=== PATIENT | male | born 1970 | race African-American/Black ===

== ENCOUNTER 2023-04-19 13:30 | Inpatient (IN) | payer MEDICAID, OTHER ==
[~2023-04-19] VITALS: Ht 177.8 cm; Wt 66.0 kg
[2023-04-19 14:15] VITALS: PULSE 74; RESP 34; O2SAT 99
[2023-04-19 15:10] LABS: Base Excess -2.4 mmol/L (-2.0-2.0)
[2023-04-19 15:22] LABS: Basophils # (auto) 0 10 ^3/uL (0-0.2); Basophils % (auto) 0.3 % (0.0-2.0); Eosinophils # (auto) 0 10 ^3/uL (0-0.8); Eosinophils % (auto) 0.1 % (0.0-7.0); Hematocrit 27.3 % (41.0-53.0); Hemoglobin 9.3 g/dL (13.5-17.5); Lymphocytes # (auto) 0.6 10 ^3/uL (0.4-5.4); Lymphocytes % (auto) 15.8 % (10.0-50.0); Mean Corpuscular Hemoglobin 27.5 pg (28.0-32.0); Mean Corpuscular Hgb Conc. 34.1 g/dL (32.0-36.0); Mean Corpuscular Volume 80.6 fL (80.0-100.0); Monocytes # (auto) 0.4 10 ^3/uL (0-1.3); Monocytes % (auto) 8.9 % (0.0-12.0); Neutrophils % (auto) 74.9 % (37.0-80.0); Nucleated Red Blood Cells % 0.1 %; Red Blood Cells 3.38 10^6/uL (4.5-5.90); Red Cell Distribution Width 14.8 % (11.8-14.3)
[2023-04-19 15:43] LABS: Potassium 3.7 mmol/L (3.5-5.1)
[2023-04-19 15:54] LABS: Albumin 2.2 g/dL (3.4-5.0); BUN/Creatinine Ratio 23.8 (10.0-20.0); Bilirubin, Total 0.3 mg/dL (0.2-1.0); Calcium 8.8 mg/dL (8.5-10.1); Magnesium 2.4 mg/dL (1.6-2.6); Total Protein 6.4 g/dL (6.4-8.2)
[2023-04-19] MEDS ORDERED: FUROSEMIDE 40 MG/4 ML VIAL IV ONE (16:30)
[2023-04-19] MEDS ORDERED: cefTRIAXone 1GM/50ML D5W 50 ML IV ONE (16:30)
[2023-04-19] MEDS ORDERED: AZITHROMYCIN 500MG/ 250ML 250 ML IV ONE (16:30)
[2023-04-19] MEDS ORDERED: ENOXAPARIN SOD 40 MG/0.4 ML SYRINGE SC SCH (17:15)
[2023-04-19] MEDS ORDERED: DexAMETHasone SOD PHOS 10MG/1ML VIAL INJ IV ONE (17:30)
[2023-04-19] MEDS ORDERED: CEFEPIME 2GM/50ML NS 50 ML IV ONE (17:45)
[2023-04-19] MEDS ORDERED: VANCOMYCIN PER PHARMACY 0 MG IV SCH (17:45)
[2023-04-19] MEDS ORDERED: BACTRIM 5MG/KG Q8HR PER RX 0 ML IV SCH (18:30)
[2023-04-19] MEDS ORDERED: VANCOMYCIN 1GM/250ML 250 ML IV ONE (18:45)
[2023-04-19 20:18] VITALS: PULSE 81; RESP 20; O2SAT 98
[2023-04-19] MEDS ORDERED: SULFAMETHOX W/TRIMETH(800/160MG) DS TAB PO SCH (22:00)
[2023-04-19] MEDS: SULFAMETH-TRIMETH 80/16MG-ML 20 ML in D5W 5% 500 ML IV SCH (22:19)
[2023-04-19] MEDS: ATORVASTATIN 20 MG TAB PO SCH (22:27)
[2023-04-19] MEDS: ONDANSETRON HCL 4 MG/2 ML VIAL IV PRN (23:59)
[2023-04-20] MEDS ORDERED: MORPHINE SULFATE 4 MG/ML SYR/VIAL IV PRN
[2023-04-20] MEDS: CEFEPIME 2GM/50ML NS 50 ML IV SCH ×3 (02:07→17:50)
[2023-04-20 04:50] LABS: Basophils # (auto) 0 10 ^3/uL (0-0.2); Basophils % (auto) 0.1 % (0.0-2.0); Eosinophils # (auto) 0 10 ^3/uL (0-0.8); Hemoglobin 9.9 g/dL (13.5-17.5); Lymphocytes # (auto) 0.4 10 ^3/uL (0.4-5.4); Lymphocytes % (auto) 12.6 % (10.0-50.0); Mean Corpuscular Hemoglobin 27.4 pg (28.0-32.0); Mean Corpuscular Hgb Conc. 34.2 g/dL (32.0-36.0); Monocytes # (auto) 0.1 10 ^3/uL (0-1.3); Monocytes % (auto) 3.6 % (0.0-12.0); Neutrophils # (auto) 2.4 10 ^3/uL (1.6-8.6); Neutrophils % (auto) 83.7 % (37.0-80.0); Nucleated Red Blood Cells % 0.1 %; Red Blood Cells 3.62 10^6/uL (4.5-5.90); Red Cell Distribution Width 14.9 % (11.8-14.3); White Blood Cell 2.9 10^3/uL (4.4-10.8)
[2023-04-20 05:05] LABS: INR 1.06 (0.9-1.15); Prothrombin Time 11.1 sec (9.3-11.8)
[2023-04-20 05:13] LABS: Albumin 2.2 g/dL (3.4-5.0); Potassium 4.5 mmol/L (3.5-5.1)
[2023-04-20 05:15] LABS: BUN/Creatinine Ratio 22.2 (10.0-20.0)
[2023-04-20 05:17] LABS: Bilirubin, Total 0.2 mg/dL (0.2-1.0); Total Protein 7.4 g/dL (6.4-8.2)
[2023-04-20] MEDS: VANCOMYCIN 1GM/250ML 250 ML IV SCH ×2 (05:28→16:15)
[2023-04-20] MEDS: FUROSEMIDE 20 MG/2 ML VIAL IV SCH ×2 (06:30→17:51)
[2023-04-20] MEDS: SULFAMETH-TRIMETH 80/16MG-ML 20 ML in D5W 5% 500 ML IV SCH ×3 (06:38→23:15)
[2023-04-20 07:41] VITALS: PULSE 64; RESP 16; O2SAT 98
[2023-04-20 08:34] LABS: COVID19 ANTIGEN SOFIA FIA NEGATIVE (NEGATIVE)
[2023-04-20] MEDS ORDERED: cefTRIAXone 1GM/50ML D5W 50 ML IV SCH (09:00)
[2023-04-20] MEDS: DexAMETHasone SOD PHOS 10MG/1ML VIAL INJ IV SCH (09:55)
[2023-04-20] MEDS ORDERED: AZITHROMYCIN 500MG/ 250ML 250 ML IV SCH (10:00)
[2023-04-20 11:15] LABS: Cholesterol 164 mg/dL (< 200)
[2023-04-20 11:18] LABS: HDL Cholesterol 36 mg/dL (40-59); LDL Cholesterol 108 mg/dL (< 100); Triglycerides 121 mg/dL (< 150)
[2023-04-20 11:32] LABS: Alcohol, Urine < 3.0 mg/dL (0-10); Amphetamine Screen, Urine NEGATIVE (NEGATIVE); Barbiturate Scree,Urine NEGATIVE (NEGATIVE); Benzodiazephine Screen, Urine NEGATIVE (NEGATIVE); Cannabinoid Screen, Urine NEGATIVE (NEGATIVE); Cocaine Screen, Urine NEGATIVE (NEGATIVE); Opiate Scree,Urine NEGATIVE (NEGATIVE); Phencyclidine Screen, Urine NEGATIVE (NEGATIVE)
[2023-04-20 11:38] LABS: Urine Bacteria NONE SEEN /hpf (None Seen); Urine Blood Negative /uL (Negative); Urine Clarity Clear (Clear); Urine Color Colorless (Yellow); Urine Protein, UAD Negative (Negative); Urine Specific Gravity 1.012 (1.001-1.035); Urine Urobilinogen Normal (Negative); Urine WBC 2 /hpf (0 - 3); Urine pH 6.5 (5.0-8.0)
[2023-04-20 19:30] VITALS: PULSE 74; RESP 18; O2SAT 97
[2023-04-20] MEDS: ATORVASTATIN 20 MG TAB PO SCH (22:08)
[2023-04-20] MEDS: SACUBITRIL-VALSARTAN 24mg/26mg TAB PO SCH (22:09)
[2023-04-20 22:38] VITALS: PULSE 68; RESP 20; O2SAT 97
[2023-04-20 22:45] VITALS: BP 89/51; PULSE 68; RESP 20; TEMP 97.3; O2SAT 97
[2023-04-21] VITALS (7 sets, daily range): BP systolic 87–101; BP diastolic 40–63; PULSE 60–78; RESP 18–20; TEMP 97.2–97.9; O2SAT 92–99
[2023-04-21] MEDS: CEFEPIME 2GM/50ML NS 50 ML IV SCH ×3 (01:46→17:39)
[2023-04-21] MEDS: VANCOMYCIN 1GM/250ML 250 ML IV SCH ×3 (01:48→22:16)
[2023-04-21] MEDS ORDERED: SODIUM CHLORIDE 0.9% 500 ML IV ONE (04:15)
[2023-04-21] MEDS: FUROSEMIDE 20 MG/2 ML VIAL IV SCH ×2 (06:00→17:42)
[2023-04-21] MEDS: EMPAGLIFLOZIN 10 MG TAB PO SCH (06:28)
[2023-04-21 07:06] LABS: Basos 0 % (Not Estab.); Eos 0 % (Not Estab.); Hematocrit 32.4 % (37.5-51.0); Hematology Comments: Note: (.); Hemoglobin 9.5 g/dL (13.0-17.7); Immature Granulocytes 0 % (Not Estab.); Lymphs 18 % (Not Estab.); Lymphs (Absolute) 0.5 x10E3/uL (0.7-3.1); MCHC 29.3 g/dL (31.5-35.7); MCV 89 fL (79-97); Monocytes 8 % (Not Estab.); Monocytes (Absolute) 0.2 x10E3/uL (0.1-0.9); Neutrophils 74 % (Not Estab.); Platelets 373 x10E3/uL (150-450); RBC 3.65 x10E6/uL (4.14-5.80); WBC 2.7 x10E3/uL (3.4-10.8)
[2023-04-21] MEDS ORDERED: FUROSEMIDE 20 MG/2 ML VIAL IV ONE (08:00)
[2023-04-21] MEDS: SULFAMETH-TRIMETH 80/16MG-ML 20 ML in D5W 5% 500 ML IV SCH ×2 (09:37→17:39)
[2023-04-21 10:07] LABS: % CD 4 Pos Lymph 31.6 % (30.8-58.5); Absolute CD 4 Helper 158 /uL (359-1519)
[2023-04-21] MEDS: SACUBITRIL-VALSARTAN 24mg/26mg TAB PO SCH (11:17)
[2023-04-21] MEDS: DexAMETHasone SOD PHOS 10MG/1ML VIAL INJ IV SCH (11:17)
[2023-04-21] MEDS: ATORVASTATIN 20 MG TAB PO SCH (22:16)
[2023-04-22] VITALS (8 sets, daily range): BP systolic 90–98; BP diastolic 52–66; PULSE 59–78; RESP 16–19; TEMP 97.4–98.4; O2SAT 90–96
[2023-04-22] MEDS: SULFAMETH-TRIMETH 80/16MG-ML 20 ML in D5W 5% 500 ML IV SCH ×3 (00:21→17:41)
[2023-04-22] MEDS: CEFEPIME 2GM/50ML NS 50 ML IV SCH ×3 (01:49→17:41)
[2023-04-22 05:01] LABS: Potassium 4.4 mmol/L (3.5-5.1)
[2023-04-22 05:09] LABS: BUN/Creatinine Ratio 21.8 (10.0-20.0); Calcium 9.3 mg/dL (8.5-10.1)
[2023-04-22] MEDS: FUROSEMIDE 20 MG/2 ML VIAL IV SCH ×2 (06:00→17:42)
[2023-04-22] MEDS: EMPAGLIFLOZIN 10 MG TAB PO SCH (06:19)
[2023-04-22] MEDS: VANCOMYCIN 1GM/250ML 250 ML IV SCH (08:51)
[2023-04-22] MEDS: SACUBITRIL-VALSARTAN 24mg/26mg TAB PO SCH ×2 (10:00→21:48)
[2023-04-22] MEDS: DexAMETHasone SOD PHOS 10MG/1ML VIAL INJ IV SCH (12:16)
[2023-04-22] MEDS ORDERED: VANCOMYCIN 1GM/250ML 250 ML IV SCH (21:00)
[2023-04-22] MEDS: ATORVASTATIN 20 MG TAB PO SCH (21:48)
[2023-04-23] VITALS (11 sets, daily range): BP systolic 87–110; BP diastolic 50–66; PULSE 20–96; RESP 16–78; TEMP 97.8–98.9; O2SAT 97–100
[2023-04-23] MEDS: SULFAMETH-TRIMETH 80/16MG-ML 20 ML in D5W 5% 500 ML IV SCH ×3 (01:19→18:41)
[2023-04-23] MEDS: CEFEPIME 2GM/50ML NS 50 ML IV SCH ×3 (01:19→18:00)
[2023-04-23] MEDS: FUROSEMIDE 20 MG/2 ML VIAL IV SCH ×2 (06:00→18:00)
[2023-04-23] MEDS: EMPAGLIFLOZIN 10 MG TAB PO SCH (06:55)
[2023-04-23] MEDS ORDERED: EPINEPHrine HCL 1 MG/1 ML AMP ONE (08:15)
[2023-04-23] MEDS ORDERED: LIDOCAINE 2%HCL (LOCAL ANESTH.) INJ 20ML MDV ONE (08:15)
[2023-04-23] MEDS ORDERED: LIDOCAINE 2% JELLY 11ml (GLYDO) ONE (08:15)
[2023-04-23] MEDS ORDERED: GLYCOPYRROLATE 0.2 MG/ML 1ML VIAL ONE (08:15)
[2023-04-23] MEDS ORDERED: LIDOCAINE HCL 2 % INJ 2ML MPF NEB ONE (09:30)
[2023-04-23] MEDS: SACUBITRIL-VALSARTAN 24mg/26mg TAB PO SCH ×2 (10:00→22:00)
[2023-04-23] MEDS: DexAMETHasone SOD PHOS 10MG/1ML VIAL INJ IV SCH (10:00)
[2023-04-23] MEDS: fentaNYL CITRATE 100 MCG/2 ML VL ONE ×3 (10:24→10:28)
[2023-04-23] MEDS: MIDAZOLAM HCL 2MG/2ML 2ml VIAL (1mg/ml) ONE ×3 (10:24→10:28)
[2023-04-23] MEDS: diphenhdrAMINE HCL 50 MG/1 ML VL ONE ×2 (10:25→10:28)
[2023-04-23 14:44] LABS: Basophils # (auto) 0 10 ^3/uL (0-0.2); Basophils % (auto) 0.2 % (0.0-2.0); Eosinophils # (auto) 0 10 ^3/uL (0-0.8); Eosinophils % (auto) 0.1 % (0.0-7.0); Lymphocytes # (auto) 0.6 10 ^3/uL (0.4-5.4); Monocytes # (auto) 0.5 10 ^3/uL (0-1.3); Red Cell Distribution Width 14.8 % (11.8-14.3)
[2023-04-23 14:45] LABS: Hematocrit 33.4 % (41.0-53.0); Hemoglobin 11.3 g/dL (13.5-17.5); Lymphocytes % (auto) 7.8 % (10.0-50.0); Mean Corpuscular Hemoglobin 27.5 pg (28.0-32.0); Monocytes % (auto) 7.4 % (0.0-12.0); Neutrophils # (auto) 6.1 10 ^3/uL (1.6-8.6); Neutrophils % (auto) 84.5 % (37.0-80.0); Red Blood Cells 4.12 10^6/uL (4.5-5.90); White Blood Cell 7.3 10^3/uL (4.4-10.8)
[2023-04-23 15:03] LABS: Albumin 2.6 g/dL (3.4-5.0); Calcium 9.4 mg/dL (8.5-10.1); Potassium 4.6 mmol/L (3.5-5.1)
[2023-04-23 15:18] LABS: Bilirubin, Total 0.2 mg/dL (0.2-1.0)
[2023-04-23 15:42] LABS: Total Protein 7.4 g/dL (6.4-8.2)
[2023-04-23] MEDS: VANCOMYCIN 1GM/250ML 250 ML IV SCH (21:12)
[2023-04-23] MEDS: ATORVASTATIN 20 MG TAB PO SCH (22:42)
[2023-04-24] VITALS (8 sets, daily range): BP systolic 89–103; BP diastolic 41–57; PULSE 67–89; RESP 18–21; TEMP 97.8–100; O2SAT 90–100
[2023-04-24] MEDS: SULFAMETH-TRIMETH 80/16MG-ML 20 ML in D5W 5% 500 ML IV SCH ×3 (00:39→17:01)
[2023-04-24] MEDS: CEFEPIME 2GM/50ML NS 50 ML IV SCH ×3 (02:30→20:23)
[2023-04-24] MEDS: FUROSEMIDE 20 MG/2 ML VIAL IV SCH ×2 (05:56→18:00)
[2023-04-24] MEDS: EMPAGLIFLOZIN 10 MG TAB PO SCH (06:32)
[2023-04-24] MEDS: DexAMETHasone SOD PHOS 10MG/1ML VIAL INJ IV SCH (09:43)
[2023-04-24] MEDS: SACUBITRIL-VALSARTAN 24mg/26mg TAB PO SCH ×2 (09:44→21:12)
[2023-04-24] MEDS: VANCOMYCIN 1GM/250ML 250 ML IV SCH (12:00)
[2023-04-24] MEDS: ONDANSETRON HCL 4 MG/2 ML VIAL IV PRN (20:22)
[2023-04-24] MEDS: ATORVASTATIN 20 MG TAB PO SCH (22:00)
[2023-04-25] VITALS (9 sets, daily range): BP systolic 74–121; BP diastolic 42–70; PULSE 57–95; RESP 17–20; TEMP 36.7; O2SAT 94–100
[2023-04-25] MEDS: SULFAMETH-TRIMETH 80/16MG-ML 20 ML in D5W 5% 500 ML IV SCH ×3 (01:54→17:03)
[2023-04-25] MEDS: VANCOMYCIN 1GM/250ML 250 ML IV SCH (04:18)
[2023-04-25] MEDS: FUROSEMIDE 20 MG/2 ML VIAL IV SCH (05:06)
[2023-04-25] MEDS: CEFEPIME 2GM/50ML NS 50 ML IV SCH ×4 (06:03→18:20)
[2023-04-25] MEDS: EMPAGLIFLOZIN 10 MG TAB PO SCH (06:06)
[2023-04-25] MEDS: DexAMETHasone SOD PHOS 10MG/1ML VIAL INJ IV SCH (10:00)
[2023-04-25] MEDS ORDERED: LACTULOSE 20Gm/30ML SOLN PO PRN (10:45)
[2023-04-25] MEDS ORDERED: SODIUM CHLORIDE 0.9% 500 ML IV ONE (10:45)
[2023-04-25] MEDS ORDERED: BACDST PO (11:38)
[2023-04-25] MEDS ORDERED: PRED20TA2 PO (11:42)
[2023-04-25] MEDS ORDERED: SENN-58 PO (11:42)
[2023-04-25] MEDS ORDERED: DOCU-94 PO (11:42)
[2023-04-25] MEDS ORDERED: MID10T PO (13:25)
[2023-04-25] MEDS ORDERED: MIDODRINE HCL 10 MG TAB PO ONE (13:30)
[2023-04-25 14:06] LABS: Aspergillus flavus Negative (Neg:<1:1); Aspergillus fumigatus Negative (Neg:<1:1); Aspergillus niger Negative (Neg:<1:1); Blastomyces Antibody DID Negative (Neg:<1:1)
[2023-04-25] MEDS ORDERED: MIDODRINE HCL 10 MG TAB PO SCH (18:00)
[2023-04-25] MEDS ORDERED: VANCOMYCIN 1GM/250ML 250 ML IV SCH (21:00)
[2023-04-25] MEDS: ATORVASTATIN 20 MG TAB PO SCH (23:38)
== END 2023-04-26 00:07 | disposition home or self-care (01) | DRG 137 ==
LOC: EDBD 13:30 → ER 13:30 → TELE 17:21 → TELE-WESTW 04-20 22:25
PROVIDERS: ADMIT Internal Medicine; ATTEND Internal Medicine
PROC: 0B9B8ZZ Drainage of Left Lower Lobe Bronchus, Via Natural or Artificial Opening Endoscopic (ICD-10-PCS; 2023-04-23)
PROC: 0B958ZZ Drainage of Right Middle Lobe Bronchus, Via Natural or Artificial Opening Endoscopic (ICD-10-PCS; principal; 2023-04-23 09:59)
DX: B59 Pneumocystosis (principal); J96.01 Acute respiratory failure with hypoxia; I50.33 Acute on chronic diastolic (congestive) heart failure; I42.7 Cardiomyopathy due to drug and external agent; R62.7 Adult failure to thrive; K59.00 Constipation, unspecified; Z20.822 Contact with and (suspected) exposure to COVID-19; I35.0 Nonrheumatic aortic (valve) stenosis; D72.819 Decreased white blood cell count, unspecified; Z79.899 Other long term (current) drug therapy; Z87.891 Personal history of nicotine dependence; Z68.20 Body mass index [BMI] 20.0-20.9, adult; Z21 Asymptomatic human immunodeficiency virus [HIV] infection status
CPT/HCPCS: 31622; 36415; 36600; 70450; 70551; 71045; 80048; 80053; 80061; 80202; 80307; 81001; 82805; 82962; 83036; 83605; 83735; 83880; 84443; 84484; 85025; 85610; 86360; 86606; 86612; 86635; 86698; 87040; 87070; 87205; 87426; 93005; 93306; 97110; 97116; 97163; 97530; 99291; G0378; J0171; J0692; J1100; J2250; J2405; J3490

== ENCOUNTER 2023-05-31 22:03 | Inpatient (IN) | payer MEDICAID ==
[~2023-05-31] VITALS: Ht 167.6 cm; Wt 68.6 kg
[~2023-05-31 22:03] MED LIST: BACDST PO; DOCU-94 PO; MID10T PO; PRED20TA2 PO; SENN-58 PO
[2023-05-31 22:43] LABS: Basophils # (auto) 0 10 ^3/uL (0-0.2); Basophils % (auto) 0.1 % (0.0-2.0); Eosinophils # (auto) 0 10 ^3/uL (0-0.8); Hemoglobin 9.1 g/dL (13.5-17.5); Monocytes # (auto) 0.8 10 ^3/uL (0-1.3)
[2023-05-31 22:44] LABS: Lymphocytes # (auto) 0.9 10 ^3/uL (0.4-5.4); Lymphocytes % (auto) 11.7 % (10.0-50.0); Mean Corpuscular Hemoglobin 26.3 pg (28.0-32.0); Mean Corpuscular Hgb Conc. 32.6 g/dL (32.0-36.0); Mean Corpuscular Volume 80.7 fL (80.0-100.0); Monocytes % (auto) 10.9 % (0.0-12.0); Neutrophils # (auto) 5.8 10 ^3/uL (1.6-8.6); Neutrophils % (auto) 77.3 % (37.0-80.0); Nucleated Red Blood Cells % 0.1 %; Red Blood Cells 3.47 10^6/uL (4.5-5.90); Red Cell Distribution Width 15.7 % (11.8-14.3); White Blood Cell 7.5 10^3/uL (4.4-10.8)
[2023-05-31] MEDS ORDERED: LIDOCAINE 1% HCL (LOCAL ANESTH.) INJ 20ML MDV IJ ONE (23:00)
[2023-05-31 23:02] LABS: Alanine Aminotransferase 17 U/L (7-40); Albumin 3.7 g/dL (3.2-4.8); Alkaline Phosphatase 78 U/L (46-116); Anion Gap 7 (5-15); Aspartate Aminotransferase 20 U/L (13-40); BUN/Creatinine Ratio 9.7 (10.0-20.0); Blood Urea Nitrogen 10 mg/dL (9-23); Calcium 8.8 mg/dL (8.7-10.4); Carbon Dioxide 23 mmol/L (20-30); Chloride 98 mmol/L (98-107); Glucose 103 mg/dL (74-106); Potassium 4.5 mmol/L (3.5-5.1); Sodium 128 mmol/L (136-145)
[2023-05-31] MEDS ORDERED: LIDOCAINE 1% HCL (LOCAL ANESTH.) INJ 20ML MDV ONE (23:02)
[2023-05-31 23:03] LABS: Bilirubin, Total 0.3 mg/dL (0.2-1.0); Total Protein 7.1 g/dL (5.7-8.2)
[2023-05-31] MEDS ORDERED: SODIUM CHLORIDE 0.9% 2,000 ML IV ONE (23:45)
[2023-05-31 23:50] VITALS: PULSE 86; RESP 20; O2SAT 97
[2023-05-31 23:56] LABS: Protein, CSF 41.1 mg/dL (15-45)
[2023-06-01] MEDS ORDERED: SULFAMETH-TRIMETH 80/16MG-ML 15 ML in D5W 5% 500 ML IV ONE ×2
[2023-06-01] MEDS ORDERED: PENICILLIN G BENZ 600000 UNIT/ML 1ML SYRG IM ONE
[2023-06-01] MEDS ORDERED: DOXYCYCLINE 100MG/250ML 250 ML IV ONE
[2023-06-01 00:30] LABS: CSF White Blood Cells 0.6 CUMM (0-5)
[2023-06-01] MEDS ORDERED: ACETAMINOPHEN 325 MG TAB PO ONE (00:45)
[2023-06-01] MEDS ORDERED: SODIUM CHLORIDE 0.9% 1,000 ML IV ONE (01:15)
[2023-06-01] MEDS ORDERED: ONDANSETRON HCL 4 MG/2 ML VIAL IV PRN (01:15)
[2023-06-01 01:55] LABS: Chloride 102 mmol/L (98-107); Potassium 4.4 mmol/L (3.5-5.1); Sodium 130 mmol/L (136-145)
[2023-06-01 01:56] LABS: Anion Gap 7 (5-15); Calcium 7.9 mg/dL (8.7-10.4); Carbon Dioxide 21 mmol/L (20-30)
[2023-06-01 02:01] LABS: BUN/Creatinine Ratio 11.6 (10.0-20.0); Blood Urea Nitrogen 10 mg/dL (9-23); Glucose 103 mg/dL (74-106)
[2023-06-01 02:25] LABS: Urine Bacteria NONE SEEN /hpf (None Seen); Urine Blood Negative /uL (Negative); Urine Clarity Clear (Clear); Urine Color Colorless (Yellow); Urine Protein, UAD Negative (Negative); Urine Specific Gravity 1.002 (1.001-1.035); Urine Urobilinogen Normal (Negative); Urine WBC 1 /hpf (0 - 3)
[2023-06-01 02:32] LABS: Amphetamine Screen, Urine Neg (NEGATIVE); Barbiturate Scree,Urine Neg (NEGATIVE); Benzodiazephine Screen, Urine Neg (NEGATIVE); Cannabinoid Screen, Urine Neg (NEGATIVE); Cocaine Screen, Urine Neg (NEGATIVE); Opiate Scree,Urine Neg (NEGATIVE); Phencyclidine Screen, Urine Neg (NEGATIVE)
[2023-06-01] MEDS ORDERED: SULFAMETH-TRIMETH 800-160mg/10ml (80-16MG/ML) 10 ML VIAL IV ONE (03:34)
[2023-06-01 06:17] LABS: Anion Gap 6 (5-15); Carbon Dioxide 22 mmol/L (20-30); Chloride 106 mmol/L (98-107); Potassium 4.5 mmol/L (3.5-5.1); Sodium 134 mmol/L (136-145)
[2023-06-01 06:18] LABS: Calcium 8.5 mg/dL (8.5-10.1)
[2023-06-01 06:23] LABS: BUN/Creatinine Ratio 12.7 (10.0-20.0); Blood Urea Nitrogen 10 mg/dL (9-23); Glucose 116 mg/dL (74-106)
[2023-06-01 07:44] LABS: COVID19 ANTIGEN SOFIA FIA NEGATIVE (NEGATIVE)
[2023-06-01 07:55] VITALS: PULSE 62; RESP 17; O2SAT 97
[2023-06-01] MEDS: DOXYCYCLINE 100MG/250ML 250 ML IV SCH ×2 (09:46→21:19)
[2023-06-01 14:06] VITALS: PULSE 86; RESP 19; O2SAT 97
[2023-06-01 15:09] VITALS: BP 116/73; PULSE 88; RESP 16; TEMP 97.4; O2SAT 97
[2023-06-01] MEDS ORDERED: DOXY100C4 PO (17:34)
[2023-06-01] MEDS ORDERED: BICT1TAB PO (17:34)
[2023-06-01 17:45] VITALS: BP 114/65; PULSE 77; RESP 20; TEMP 97.5; O2SAT 94
[2023-06-01] MEDS: ACETAMINOPHEN 325 MG TAB PO PRN (19:04)
[2023-06-01 20:00] VITALS: PULSE 91; O2SAT 100
[2023-06-01 22:00] VITALS: BP 91/50; PULSE 104; RESP 17; TEMP 98.8; O2SAT 100
[2023-06-02] VITALS (8 sets, daily range): BP systolic 90–109; BP diastolic 60–71; PULSE 71–96; RESP 16–20; TEMP 96.9–101.3; O2SAT 93–100
[2023-06-02] MEDS: ACETAMINOPHEN 325 MG TAB PO PRN ×2 (04:48→16:33)
[2023-06-02] MEDS: DOXYCYCLINE 100MG/250ML 250 ML IV SCH ×2 (11:54→21:04)
[2023-06-02 22:06] LABS: HSV-1 DNA CSF Negative (Negative); HSV-2 DNA Negative (Negative)
[2023-06-03] VITALS (9 sets, daily range): BP systolic 90–97; BP diastolic 49–58; PULSE 64–133; RESP 16–22; TEMP 98.2–99.4; O2SAT 94–100
[2023-06-03] MEDS: Ensure HIGH Protein Chocolate 8oz Bottle PO SCH ×3 (08:00→19:22)
[2023-06-03] MEDS ORDERED: ALBUTEROL SULF 2.5 MG/0.5ML(0.5%) NEB SOLN NEB PRN (10:30)
[2023-06-03] MEDS: DOXYCYCLINE 100MG/250ML 250 ML IV SCH (11:39)
[2023-06-03] MEDS: DOXYCYCLINE 100 MG TAB/CAP PO SCH (21:00)
[2023-06-04] VITALS (11 sets, daily range): BP systolic 84–112; BP diastolic 45–65; PULSE 65–97; RESP 16–20; TEMP 97.9–99.8; O2SAT 96–100
[2023-06-04] MEDS ORDERED: SODIUM CHLORIDE 0.9% 500 ML IV ONE (05:30)
[2023-06-04] MEDS: MIDODRINE HCL 10 MG TAB PO SCH ×3 (05:30→18:15)
[2023-06-04] MEDS: Ensure HIGH Protein Chocolate 8oz Bottle PO SCH ×3 (08:00→18:00)
[2023-06-04] MEDS: DOXYCYCLINE 100 MG TAB/CAP PO SCH ×2 (12:10→20:57)
[2023-06-04] MEDS: ACETAMINOPHEN 325 MG TAB PO PRN (23:07)
[2023-06-05] VITALS (8 sets, daily range): BP systolic 89–112; BP diastolic 48–62; PULSE 69–93; RESP 17–20; TEMP 97.8–98.9; O2SAT 96–99
[2023-06-05] MEDS: MIDODRINE HCL 10 MG TAB PO SCH ×3 (05:27→17:46)
[2023-06-05] MEDS: Ensure HIGH Protein Chocolate 8oz Bottle PO SCH ×3 (08:00→18:00)
[2023-06-05] MEDS: DOXYCYCLINE 100 MG TAB/CAP PO SCH ×2 (10:00→21:05)
[2023-06-06] VITALS (10 sets, daily range): BP systolic 76–113; BP diastolic 48–76; PULSE 69–106; RESP 15–23; TEMP 97.6–99.7; O2SAT 95–99
[2023-06-06] MEDS: MIDODRINE HCL 10 MG TAB PO SCH ×3 (05:10→17:00)
[2023-06-06] MEDS: ACETAMINOPHEN 325 MG TAB PO PRN (05:10)
[2023-06-06] MEDS: Ensure HIGH Protein Chocolate 8oz Bottle PO SCH ×3 (08:00→17:03)
[2023-06-06] MEDS: DOXYCYCLINE 100 MG TAB/CAP PO SCH ×2 (08:19→21:17)
[2023-06-07 05:00] VITALS: BP 132/61; PULSE 85; RESP 19; TEMP 98.9; O2SAT 95
[2023-06-07] MEDS: MIDODRINE HCL 10 MG TAB PO SCH ×3 (05:49→18:00)
[2023-06-07 08:00] VITALS: PULSE 80; PULSE 86; RESP 14; O2SAT 99
[2023-06-07] MEDS: Ensure HIGH Protein Chocolate 8oz Bottle PO SCH ×3 (08:29→18:00)
[2023-06-07] MEDS: DOXYCYCLINE 100 MG TAB/CAP PO SCH (08:30)
[2023-06-07 09:00] VITALS: BP 90/52; PULSE 86; RESP 14; TEMP 98.3; O2SAT 98
[2023-06-07 13:00] VITALS: BP 106/49; PULSE 89; RESP 20; TEMP 97.8; O2SAT 98
[2023-06-07 17:00] VITALS: BP 107/45; PULSE 82; RESP 20; TEMP 100.1; O2SAT 100
== END 2023-06-07 18:30 | disposition home health service (06) | DRG 890 ==
LOC: ER 22:03 → EDBD 22:03 → TELE 06-01 01:23 → TELE-EAST 06-01 13:21
PROVIDERS: ADMIT Nurse Practitioner Family; ATTEND Nurse Practitioner Family
DX: B20 Human immunodeficiency virus [HIV] disease (principal); G93.41 Metabolic encephalopathy; B59 Pneumocystosis; A41.9 Sepsis, unspecified organism; J18.9 Pneumonia, unspecified organism; E87.1 Hypo-osmolality and hyponatremia; Z91.199 Patient's noncompliance with other medical treatment and regimen due to unspecified reason; Z82.5 Family history of asthma and other chronic lower respiratory diseases; Z87.891 Personal history of nicotine dependence
CPT/HCPCS: 36415; 70450; 71045; 80048; 80053; 80307; 80320; 81001; 82140; 82945; 83605; 84157; 84484; 85025; 87040; 87070; 87081; 87086; 87205; 87426; 87529; 89051; 93005; 96361; 96365; 97110; 97116; 97163; 97530; 99291; G0378; J0561; J2001; J3490